=== PATIENT | male | born 1985 | race Hispanic/Latino ===

== ENCOUNTER 2017-08-28 13:53 | Emergency (ER) | payer SELFPAY ==
[2017-08-28 14:54] LABS: HEMATOCRIT 44.4 % (39.0-50.0); HEMOGLOBIN 14.9 g/dl (14.0-18.0); IMMATURE GRANULOCYTES 0.4 % (0.0-1.0); MEAN CELL VOLUME 93.1 fL CALC (80.0-100.0); MEAN CORPUSCULAR HGB 31.2 pG CALC (26.0-32.0); MEAN CORPUSCULAR HGB CONC 33.6 g/L CALC (32.0-36.0); NEUT# 3.44 thou/uL (1.82-7.42); RED BLOOD COUNT 4.77 mill/uL (4.70-6.10)
[2017-08-28 15:08] LABS: ALBUMIN 4.8 g/dL (3.2-5.0); ALKALINE PHOSPHATASE 127 u/l (38-126); AMYLASE 82 u/l (30-110); ANION GAP 21 (6-22 (CALC)); BILIRUBIN, TOTAL 0.8 mg/dL (0.0-1.4); BUN 10 mg/dL (9-20); BUN/CREATININE RATIO 13 (12-20 (CALC)); CARBON DIOXIDE 25 mmol/l (22-30); CHLORIDE 100 mmol/l (95-108); CREATININE 0.8 mg/dL (0.7-1.3); GFR > 60 ML/MIN (>=60 (CALC)); GFR FOR AFR.AMER. > 60 ML/MIN (>=60 (CALC)); LIPASE 183 u/l (23-300); SGOT/AST 232 u/l (17-59); SGPT/ALT 177 u/l (21-72); SODIUM 142 mmol/l (137-146); TOTAL PROTEIN 8.5 g/dL (6.3-8.2)
[2017-08-28 16:15] LABS: URINE BILIRUBIN - DIPSTICK NEGATIVE (NEGATIVE); URINE BLOOD DIPSTICK NEGATIVE (NEGATIVE); URINE COLOR YELLOW; URINE GLUCOSE - DIPSTICK NEGATIVE (NEGATIVE); URINE KETONE NEGATIVE (NEGATIVE); URINE LEUK ESTERASE NEGATIVE (NEGATIVE); URINE NITRITE - DIPSTICK NEGATIVE (Negative); URINE PROTEIN - DIPSTICK TRACE mg/dL (NEG-TRACE); URINE SPECIFIC GRAVITY 1.015; URINE UROBILINOGEN - DIPSTICK 0.2 E.U./dL (0.2)
[2017-08-28 16:20] LABS: URINE CLARITY CLEAR
[2017-08-28] MEDS ORDERED: PEPCID40 MG PO (16:34)
[2017-08-28 16:46] VITALS: BP 147/93
== END 2017-08-28 16:46 | disposition home or self-care (01) | DRG 392 ==
LOC: ED 13:53
PROVIDERS: Family Medicine
DX: K29.20 Alcoholic gastritis without bleeding (principal); K70.10 Alcoholic hepatitis without ascites